=== PATIENT | female | born 1980 | race Caucasian/White ===

== ENCOUNTER → 2023-01-27 | Outpatient (CLI) | payer OTHER | LOC: LABNPT 17:00 | PROVIDERS: ATTEND Nurse Practitioner Family | DX: Z32.01 Encounter for pregnancy test, result positive (principal) | CPT/HCPCS: 84702 ==

== ENCOUNTER → 2023-02-08 | Outpatient (CLI) | payer OTHER | LOC: CARDFS 08:29 | PROVIDERS: ATTEND Physician Assistant | DX: I10 Essential (primary) hypertension (principal); Z82.49 Family history of ischemic heart disease and other diseases of the circulatory system | CPT/HCPCS: 93306 ==

== ENCOUNTER 2023-08-29 12:52 | Outpatient (CLI) | payer OTHER ==
[~2023-08-29] VITALS: Ht 154.9 cm; Wt 99.8 kg
[2023-08-29] MEDS ORDERED: RT-ALBUTEROL SULF 2.5 MG/3 ML PRE-MIX VIAL INH PRN (13:45)
[2023-08-29] MEDS ORDERED: EPINEPHrine INJECTION 1 MG/ML AMP IM PRN (13:45)
[2023-08-29] MEDS ORDERED: IRON DEXTRAN 25 MG/NS 6.25 ML TOTAL VOLUME IV NR ×3 (13:45)
[2023-08-29] MEDS ORDERED: HYDROCORTISONE INJECTION 100 MG/2 ML VIAL IV PRN (13:45)
[2023-08-29] MEDS ORDERED: diphenhydrAMINE INJ 50 MG/ML VIAL IV PRN (13:45)
[2023-08-29] MEDS ORDERED: IRON DEXTRAN 1,000 MG/NS 250 ML IVPB IV ONE ×2 (14:00)
[2023-08-29 16:15] VITALS: BP 113/84
[2023-08-29] MEDS ORDERED: PREN1TAB79 PO (19:01)
[2023-08-29] MEDS ORDERED: OMEP40CA6 PO (19:01)
[2023-08-29] MEDS ORDERED: ASPI-1238 PO (19:01)
[2023-08-29] MEDS ORDERED: BUPR150T9 PO (19:01)
[2023-08-29] MEDS ORDERED: IRON PO (19:01)
[2023-08-29] MEDS ORDERED: METH27TA4 PO (19:01)
== END 2023-08-29 16:15 | disposition home or self-care (01) ==
LOC: SDC 12:52
PROVIDERS: ATTEND Obstetrics & Gynecology
DX: D64.9 Anemia, unspecified (principal)
CPT/HCPCS: 96365

== ENCOUNTER → 2023-09-15 | Outpatient (CLI) | payer OTHER ==
[~2023-09-15] VITALS: Ht 160 cm; Wt 99.5 kg
[~2023-09-15] MED LIST: ASPI-1238 PO; BUPR150T9 PO; DOCU50LI11 PO; IRON PO; METH27TA4 PO; OMEP40CA6 PO; PREN1TAB79 PO
== END | disposition home or self-care (01) ==
LOC: PREOP 05:28
PROVIDERS: ATTEND Obstetrics & Gynecology
DX: Z01.818 Encounter for other preprocedural examination (principal)